=== PATIENT | male | born 1950 | race Two or more races ===

== ENCOUNTER 2017-02-19 13:53 | Emergency (ER) | payer MEDICARE, OTHER ==
[2017-02-19 14:09] VITALS: BMI 28.0
--- NOTE | 2017-02-19 14:16 | PDOC ---
Rapid Medical Evaluation Chief Complaint: Weakness Time Seen by Provider: 02/19/17 14:06 Medical Evaluation: Allergies Allergy/AdvReac Type Severity Reaction Status Date / Time No Known Allergies Allergy Verified 02/19/17 14:06 Vital Signs Temp Pulse Resp BP Pulse Ox 97.8 F 92 H 19 127/93 97 02/19/17 14:06 02/19/17 14:06 02/19/17 14:06 02/19/17 14:06 02/19/17 14:06 02/19/17 14:09 I performed a brief in-person evaluation of this patient. The patient presents with a chief complaint of: weakness, dizziness and dry mouth for one week seen at another hospital still not feeling better complaining of inability to walk. Denies chest pain, shortness of breath Pertinent physical exam findings: NAD. Lungs: cta bilat Heart: S1s2 Neuron: weakness, unsteady gait I have ordered the following: Ekg labs The patient will proceed to the Ed for further evaluation. 02/19/17 14:11
[2017-02-19 14:45] LABS: BASOPHIL 0.5 % (0-2.0); EOSINOPHIL 0.9 % (0-4.5); MCH 29.5 pg (25.7-33.7); MCHC 32.3 g/dl (32.0-35.9); MEAN CELL VOLUME 91.2 fl (80-96); MEAN PLT VOLUME 8.9 fl (7.5-11.1); NEUTROPHILS 71.8 % (42.8-82.8); PLATELET COUNT 235 K/MM3 (134-434); RDW 13.7 % (11.9-15.9); WHITE BLOOD COUNT 11.1 K/mm3 (4.0-10.0)
[2017-02-19] MEDS ORDERED: SODIUM CHLORIDE 1,000 ML IV STA ×2 (14:59→15:38)
--- NOTE | 2017-02-19 15:05 | PDOC ---
History of Present Illness - General Chief Complaint: Weakness Stated Complaint: WEAKNESS Time Seen by Provider: 02/19/17 14:06 History Source: Patient - History of Present Illness Timing/Duration: other Severity: severe Associated Symptoms: denies: chest pain, fever/chills, headaches, nausea/ vomiting, shortness of breath, weakness Past History - Past Medical History Allergies/Adverse Reactions: Allergies Allergy/AdvReac Type Severity Reaction Status Date / Time No Known Allergies Allergy Verified 02/19/17 14:06 Home Medications: Ambulatory Orders Amlodipine Besylate 5 mg PO DAILY 02/19/17 Ciprofloxacin [Cipro (Restricted To Id)] 500 mg PO Q12H 02/19/17 Metformin HCl 500 mg PO BID 02/19/17 Naproxen [Naprosyn -] 500 mg PO DAILY 02/19/17 Tamsulosin HCl [Flomax] 0.4 mg PO DAILY 02/19/17 - Suicide/Smoking/Psychosocial Hx Smoking History: Never smoked Review of Systems - Review of Systems Constitutional: No: Chills, Fever Respiratory: No: Shortness of Breath Cardiac (ROS): No: Chest Pain ABD/GI: No: Nausea, Vomiting : Yes: Frequency *Physical Exam - Vital Signs Last Vital Signs Temp Pulse Resp BP Pulse Ox 97.8 F 92 H 19 127/93 97 02/19/17 14:06 02/19/17 14:06 02/19/17 14:06 02/19/17 14:06 02/19/17 14:06 - Physical Exam General Appearance: Yes: Appropriately Dressed. No: Apparent Distress HEENT: positive: Other (dry MM) Neck: positive: Supple Respiratory/Chest: positive: Lungs Clear, Normal Breath Sounds. negative: Respiratory Distress Cardiovascular: positive: Regular Rate, S1, S2 Gastrointestinal/Abdominal: positive: Soft. negative: Tender Musculoskeletal: negative: CVA Tenderness Integumentary: positive: Dry, Warm Neurologic: positive: Fully Oriented, Alert, Normal Mood/Affect ED Treatment Course - LABORATORY CBC & Chemistry Diagram: 02/19/17 14:35 02/19/17 14:35 - ADDITIONAL ORDERS Additional order review: 02/19/17 14:35 RBC 5.64 H MCV 91.2 MCHC 32.3 RDW 13.7 MPV 8.9 Neutrophils % 71.8 Lymphocytes % 21.0 Monocytes % 5.8 Eosinophils % 0.9 Basophils % 0.5 Medical Decision Making - Medical Decision Making 02/19/17 14:59 66-year-old male history of hypertension, BPH, NIDDM, on metformin only, p/w severely dry mouth x several days with urinary frequency for 2 weeks. States he was seen at [facility] 2 weeks ago and diagnosed with acute prostatitis after p/w urinary freq and ? suprapubic pain. Prescribed cipro for 4-6 weeks, which he is currently taken. Denies abd/flank/pelvic/perineal pain, f/c. States he does not usually check his sugars at home. See exam Polyuria w/ dry mouth Currently on cipro for acute prostatitis dx at [facility] 2 weeks ago Stable and nontoxic appearing w/ severely dry MM, exam otherwise unremarkable Suspect hyperglycemia as source of current symptoms, r/o DKA -labs -IVF -dispo pending 02/19/17 15:39 BG 511, no gap. IVF and insulin in progress and will reassess 02/19/17 17:53 Rpt FS 326. No complication on labs. Pt reports feeling better at this time. Will dc to f/u with PMD next week for better diabetic management. Pt only on metformin and reports compliance, might need adjustment or additional agent added. Pt also instructed that he needs to check his FS at home. Strict return precautions given to pt. Case d/w Dr Mccloud who agrees w/ plan 02/19/17 18:01 02/19/17 18:02 *DC/Admit/Observation/Transfer Diagnosis at time of Disposition: Hyperglycemia - Discharge Dispostion Disposition: HOME Condition at time of disposition: Improved - Referrals - Patient Instructions Printed Discharge Instructions: DI for Hyperglycemia -- Adult Additional Instructions: Por favor, tome amaya medicamento segn lo recetado y verifique amaya puncin digital a diario en casa. Por favor, kathleen un seguimiento con amaya PMD la prxima semana para un mejor control de amaya diabetes Volver al servicio de urgencias para empeorar los sntomas Print Language: CAMEROONIAN - Post Discharge Activity
[2017-02-19 15:16] LABS: ALBUMIN 3.3 g/dl (3.4-5.0); ALK PHOS 140 U/L (45-117); ANION GAP 11 (8-16); BILIRUBIN,DIRECT 0.2 mg/dL (0.0-0.2); BILIRUBIN,TOTAL 0.6 mg/dL (0.2-1.0); CO2 30 mmol/L (21-32); CREATININE 1.4 mg/dL (0.7-1.3); SGOT/AST 30 U/L (15-37); SGPT/ALT 50 U/L (12-78); TOT PROT 6.9 g/dl (6.4-8.2)
[2017-02-19 15:29] LABS: GLUCOSE,RANDOM 511 mg/dL (74-106)
[2017-02-19] MEDS ORDERED: INSULIN REGULAR HUMAN 100 UNITS/ML *VIAL SQ ONE (15:46)
[2017-02-19] MEDS ORDERED: INSULIN REGULAR HUMAN 100 UNITS/ML *VIAL ONE (15:48)
[2017-02-19] MEDS: INSULIN REGULAR HUMAN 100 UNITS/ML *VIAL IVPUSH ONE ×2 (15:49→17:01)
[2017-02-19 17:49] LABS: URINE APPEARANCE CLEAR; URINE BILIRUBIN NEGATIVE (NEGATIVE); URINE BLOOD NEGATIVE (NEGATIVE); URINE COLOR STRAW; URINE GLUCOSE (UA) 3+ (NEGATIVE); URINE KETONE 1+ (NEGATIVE); URINE NITRITE NEGATIVE (NEGATIVE); URINE PROTEIN NEGATIVE (NEGATIVE); URINE UROBILINOGEN NEGATIVE mg/dL (0.2-1.0)
[2017-02-19 18:20] VITALS: BP 124/89; PULSE 85; TEMP 98.6
[2017-02-19 21:33] LABS: URINE LEUK ESTERASE Negative (NEGATIVE)
--- NOTE | 2017-02-20 09:21 | EKG ---
Test Reason : Blood Pressure : / mmHG Vent. Rate : 081 BPM Atrial Rate : 081 BPM P-R Int : 130 ms QRS Dur : 094 ms QT Int : 392 ms P-R-T Axes : 028 019 010 degrees QTc Int : 455 ms NORMAL SINUS RHYTHM NORMAL ECG NO PREVIOUS ECGS AVAILABLE Confirmed by JOEY BOLIVAR, MARIZOL ([id number]) on 02/20/2017 9:21:37 AM Referred By: Confirmed By:MARIZOL COOK MD
== END 2017-02-19 18:20 | disposition home or self-care (01) ==
LOC: JER 13:53
PROC: 3E0337Z Introduction of Electrolytic and Water Balance Substance into Peripheral Vein, Percutaneous Approach (ICD-10-PCS; principal; 2017-02-19)
PROC: 3E013VG Introduction of Insulin into Subcutaneous Tissue, Percutaneous Approach (ICD-10-PCS; 2017-02-19)
DX: E11.65 Type 2 diabetes mellitus with hyperglycemia (principal); Z79.84 Long term (current) use of oral hypoglycemic drugs
CPT/HCPCS: 36415; 80053; 80076; 81003; 82009; 85025; 93005; 93010; 96360; 96361; 96372; 99282-25